=== PATIENT | male | born 1960 | race Caucasian/White ===

== ENCOUNTER 2023-05-11 22:40 | Emergency (ER) | payer MEDICARE, OTHER ==
[2023-05-11] MEDS ORDERED: Ketorolac Tromethamine 60 MG/2 ML VIAL ONE (23:26)
== END 2023-05-12 01:17 ==
LOC: NAV ERS 22:40
DX: M54.50 Low back pain, unspecified (principal); J44.9 Chronic obstructive pulmonary disease, unspecified; F17.210 Nicotine dependence, cigarettes, uncomplicated; E11.22 Type 2 diabetes mellitus with diabetic chronic kidney disease; N18.9 Chronic kidney disease, unspecified; Z79.899 Other long term (current) drug therapy; Z79.84 Long term (current) use of oral hypoglycemic drugs; Z79.4 Long term (current) use of insulin
CPT/HCPCS: 96372; 99283; J1885

== ENCOUNTER 2024-12-16 07:48 | Emergency (ER) | payer MEDICARE, OTHER ==
[2024-12-16] MEDS ORDERED: Dextrose 50% Abboject 50 ML SYRINGE ONE (08:10)
[2024-12-16 08:22] LABS: #Basophils 0.1 thou/uL (0.0-0.2); #Eosinophils 1.3 thou/uL (0.0-0.7); #Lymphocytes 1.3 thou/uL (1.20-3.40); #Monocytes 0.8 thou/uL (0.11-0.59); #Neutrophils 8.4 thou/uL (1.40-6.50); %Basophils 1.0 % (0.0-1.0); %Eosinophils 10.6 % (0.0-10.0); %Lymphocytes 11.2 % (21.0-51.0); %Monocytes 6.4 % (0.0-10.0); %Neutrophils 70.8 % (42.0-75.0); Hematocrit 32.5 % (42.0-52.0); Hemoglobin 11.3 g/dL (14.0-18.0); Mean Corpuscular Hemoglobin 28.5 pg (27.0-31.0); Mean Corpuscular Volume 82.1 fl (78.0-98.0); Platelet Count 274 10x3/uL (130-400); Red Blood Cell (RBC) Count 3.96 mill/uL (4.70-6.10); White Blood Cell (WBC) Count 11.9 10x3/uL (4.8-10.8)
[2024-12-16 08:31] LABS: INR-International Normal Ratio 1.1; Prothrombin Time 14.0 sec (12.0-14.7)
[2024-12-16 08:32] LABS: PTT 34.0 sec (22.9-36.1)
[2024-12-16 08:39] LABS: ALT (SGPT) 11 U/L (Less than 45); AST (SGOT) 16 U/L (11-34); Albumin 3.0 g/dL (3.1-4.5); Alkaline Phosphatase 151 U/L (40-110); Anion Gap 18 mmol/L (10-20); BUN (Urea Nitrogen) 50 mg/dL (8.4-25.7); Bilirubin, Total 0.3 mg/dL (0.3-1.2); Calc. Creatinine Clearance 0 mL/min (70-130); Calcium 8.7 mg/dL (7.8-10.44); Carbon Dioxide 19 mmol/L (23-31); Chloride 108 mmol/L (98-107); Globulin 3.2 g/dL (2.4-3.5); Glucose 62 mg/dL (80-115); Magnesium 2.0 mg/dL (1.6-2.6); Potassium 4.6 mmol/L (3.5-5.1); Sodium 140 mmol/L (136-145)
[2024-12-16 08:40] LABS: Troponin I 0.012 ng/mL (< 0.028)
[2024-12-16] MEDS ORDERED: Iopamidol 370 76% 100 ML VIAL ONE (09:00)
[2024-12-16] MEDS ORDERED: Cefepime 2 GM VIAL ONE (11:06)
== END 2024-12-16 12:25 | disposition short-term general hospital (02) ==
LOC: NAV ERS 07:48
DX: J18.9 Pneumonia, unspecified organism (principal); R09.02 Hypoxemia; E11.22 Type 2 diabetes mellitus with diabetic chronic kidney disease; N18.9 Chronic kidney disease, unspecified; K21.9 Gastro-esophageal reflux disease without esophagitis; J44.9 Chronic obstructive pulmonary disease, unspecified; F17.210 Nicotine dependence, cigarettes, uncomplicated; Z79.84 Long term (current) use of oral hypoglycemic drugs; Z79.82 Long term (current) use of aspirin; Z79.4 Long term (current) use of insulin; Z79.899 Other long term (current) drug therapy
CPT/HCPCS: 36416; 71045; 71275; 80053; 83605; 83735; 83880; 84484; 85025; 85610; 85730; 87040; 87428; 93005; 96365; 96375; J0692; J7999; Q9967

== ENCOUNTER 2025-03-05 12:06 | Emergency (ER) | payer MEDICARE, OTHER ==
[2025-03-05 14:00] LABS: Hematocrit 29.5 % (42.0-52.0); Hemoglobin 10.4 g/dL (14.0-18.0); Mean Corpuscular Hemoglobin 29.0 pg (27.0-31.0); Mean Corpuscular Volume 82.5 fl (78.0-98.0); Platelet Count 254 10x3/uL (130-400); Red Blood Cell (RBC) Count 3.58 mill/uL (4.70-6.10); White Blood Cell (WBC) Count 12.2 10x3/uL (4.8-10.8)
[2025-03-05 14:02] LABS: ALT (SGPT) 10 U/L (Less than 45); AST (SGOT) 11 U/L (11-34); Albumin 2.7 g/dL (3.1-4.5); Alkaline Phosphatase 160 U/L (40-110); Anion Gap 17 mmol/L (10-20); BUN (Urea Nitrogen) 47 mg/dL (8.4-25.7); Bilirubin, Total 0.2 mg/dL (0.3-1.2); Calc. Creatinine Clearance 0 mL/min (70-130); Calcium 8.6 mg/dL (7.8-10.44); Carbon Dioxide 26 mmol/L (23-31); Chloride 99 mmol/L (98-107); Globulin 3.2 g/dL (2.4-3.5); Glucose 168 mg/dL (80-115); Potassium 4.6 mmol/L (3.5-5.1); Sodium 137 mmol/L (136-145); Troponin I Less than 0.010 ng/mL (< 0.028)
[2025-03-05 14:10] LABS: Platelet Adequacy Comment Appears Adequate
[2025-03-05] MEDS ORDERED: Azithromycin 250 MG TAB ONE (15:21)
== END 2025-03-05 16:50 ==
LOC: NAV ERS 12:06
DX: J44.1 Chronic obstructive pulmonary disease with (acute) exacerbation (principal); E11.51 Type 2 diabetes mellitus with diabetic peripheral angiopathy without gangrene; E11.22 Type 2 diabetes mellitus with diabetic chronic kidney disease; N18.9 Chronic kidney disease, unspecified; F17.290 Nicotine dependence, other tobacco product, uncomplicated
CPT/HCPCS: 71045; 80053; 83880; 84484; 85025; 93005; 94760; J2919; 96374